=== PATIENT | female | born 1945 | race Caucasian/White ===

== ENCOUNTER → 2023-07-01 09:50 | Outpatient (REF) | payer MEDICARE, SELFPAY ==
[2023-07-01 13:40] LABS: % Basophils 1.2 % (0-2); % Immature Granulocytes 0.2 % (0-0.5); % Lymphocytes 31.4 % (20.5-51.1); % Monocytes 7.2 % (1.7-9.3); Absolute Basophils 0.1 10^3/uL (0-0.2); Absolute Eosinophils 0.1 10^3/uL (0-0.7); Absolute Lymphocytes 1.4 10^3/uL (1.2-3.4); Absolute Monocytes 0.3 10^3/uL (0.1-0.6); Absolute Neutrophils 2.5 10^3/uL (1.4-6.5); Hemoglobin 12.7 g/dL (12.0-16.0); Mean Corp Hgb Conc. 34.3 g/dL (33.0-37.0); Mean Corpuscular Hgb 32.1 pg (27.0-31.0); Mean Corpuscular Volume 93.4 fL (81.0-99.0); Mean Platelet Volume 10.6 fL (7.4-10.4); Nucleated Red Blood Cells % 0 %; Platelet Count 217 10^3/uL (130-400); Red Blood Cell Count 3.96 10^6/uL (4.20-5.40); Red Cell Dist. Width 13.1 % (11.5-14.5); White Blood Cell Count 4.3 10^3/uL (4.8-10.8)
[2023-07-01 14:08] LABS: ALT (SGPT) 13 U/L (0-35); AST (SGOT) 27 U/L (14-36); Albumin 4.3 g/dl (3.5-5.0); Alkaline Phosphatase 79 U/L (38-126); Blood Urea Nitrogen 14 mg/dl (7-17); Calcium 9.9 mg/dl (8.4-10.2); Carbon Dioxide 31 mmol/L (22-30); Chloride 101 mmol/L (98-107); Glucose 90 mg/dl (70-99); HDL Cholesterol 76 mg/dl; LDL Cholesterol, Calculated 62 mg/dl; Potassium 4.3 mmol/L (3.5-5.1); Sodium 139 mmol/L (135-145); Total Bilirubin 0.7 mg/dl (0.2-1.3); Total Cholesterol 150 mg/dl (50-199); Total Protein 6.8 g/dl (6.3-8.2); Triglyceride 64 mg/dl (10-149); Very Low Density Lipoprotein 12 mg/dl (0-30); eGFR > 60.00
[2023-07-01 14:35] LABS: Glycohemoglobin (HgbA1c) 5.9 % (4.0-5.6)
[2023-07-01 14:37] LABS: TSH 0.31 uIU/ml (0.47-4.68)
== END ==
LOC: REG 09:50
PROVIDERS: ATTENDING PHYSICIAN Family Medicine
DX: R73.01 Impaired fasting glucose (principal); I10 Essential (primary) hypertension; E78.5 Hyperlipidemia, unspecified; E03.8 Other specified hypothyroidism; E06.3 Autoimmune thyroiditis
CPT/HCPCS: 36415; 80053; 80061; 83036; 84443; 85025

== ENCOUNTER → 2023-08-11 | Outpatient (REF) | payer MEDICARE, SELFPAY | LOC: DHSLP | PROVIDERS: ATTENDING PHYSICIAN Internal Medicine Critical Care Medicine; FAMILY PHYSICIAN Family Medicine | DX: G47.33 Obstructive sleep apnea (adult) (pediatric) (principal); R09.02 Hypoxemia | CPT/HCPCS: 95800 ==

== ENCOUNTER → 2023-09-08 08:32 | Outpatient (REF) | payer MEDICARE, SELFPAY | LOC: MRI 08:32 | PROVIDERS: ATTENDING PHYSICIAN Family Medicine | DX: R29.2 Abnormal reflex (principal); R25.8 Other abnormal involuntary movements; G62.9 Polyneuropathy, unspecified | CPT/HCPCS: 72148 ==

== ENCOUNTER → 2023-11-08 10:31 | Outpatient (REF) | payer MEDICARE, SELFPAY ==
[2023-11-08 12:28] LABS: Fibrinogen 338 MG/DL (199-459)
[2023-11-10 17:09] LABS: Homocysteine 12 umol/L (0-15)
== END ==
LOC: REG 10:31
PROVIDERS: ATTENDING PHYSICIAN Family Medicine; FAMILY PHYSICIAN Family Medicine
DX: R53.82 Chronic fatigue, unspecified (principal); E03.9 Hypothyroidism, unspecified; M79.7 Fibromyalgia; E72.11 Homocystinuria
CPT/HCPCS: 36415; 83090; 85384

== ENCOUNTER → 2023-11-15 08:36 | Outpatient (REF) | payer MEDICARE, SELFPAY | LOC: WDC 08:36 | PROVIDERS: ATTENDING PHYSICIAN Obstetrics & Gynecology Gynecology; FAMILY PHYSICIAN Family Medicine | DX: Z12.31 Encounter for screening mammogram for malignant neoplasm of breast (principal) | CPT/HCPCS: 77063; 77067 ==

== ENCOUNTER 2023-11-16 16:01 | Emergency (ER) | payer MEDICARE, SELFPAY ==
[2023-11-16 16:01] VITALS: BMI 26.6
[2023-11-16 16:12] VITALS: BP 145/104
[2023-11-16 16:44] LABS: % Basophils 0.8 % (0-2); % Eosinophils 2.3 % (0-6); % Immature Granulocytes 0.2 % (0-0.5); % Lymphocytes 33.3 % (20.5-51.1); % Monocytes 7.6 % (1.7-9.3); % Neutrophils 55.8 % (42.2-75.2); Absolute Basophils 0.1 10^3/uL (0-0.2); Absolute Eosinophils 0.1 10^3/uL (0-0.7); Absolute Monocytes 0.5 10^3/uL (0.1-0.6); Absolute Neutrophils 3.4 10^3/uL (1.4-6.5); Hematocrit 39.9 % (37.0-47.0); Hemoglobin 13.5 g/dL (12.0-16.0); Mean Corp Hgb Conc. 33.8 g/dL (33.0-37.0); Mean Corpuscular Hgb 31.1 pg (27.0-31.0); Mean Corpuscular Volume 91.9 fL (81.0-99.0); Mean Platelet Volume 10.1 fL (7.4-10.4); Nucleated Red Blood Cells % 0 %; Platelet Count 242 10^3/uL (130-400); Red Blood Cell Count 4.34 10^6/uL (4.20-5.40); Red Cell Dist. Width 13.3 % (11.5-14.5); White Blood Cell Count 6.1 10^3/uL (4.8-10.8)
[2023-11-16 16:54] LABS: APTT 30.6 Sec (23.4-35.0)
[2023-11-16 16:58] LABS: ALT (SGPT) 19 U/L (0-35); AST (SGOT) 31 U/L (14-36); Albumin 4.4 g/dl (3.5-5.0); Alkaline Phosphatase 85 U/L (38-126); Blood Urea Nitrogen 16 mg/dl (7-17); Calcium 9.8 mg/dl (8.4-10.2); Carbon Dioxide 31 mmol/L (22-30); Chloride 99 mmol/L (98-107); Glucose 97 mg/dl (70-99); Potassium 5.2 mmol/L (3.5-5.1); Sodium 139 mmol/L (135-145); Total Bilirubin 0.5 mg/dl (0.2-1.3); Total Protein 6.8 g/dl (6.3-8.2); eGFR > 60.00
[2023-11-16 17:00] VITALS: BP 143/88
--- NOTE | 2023-11-16 17:22 | ED.GENMED ---
History of Present Illness
General
Chief Complaint: Dizziness
Time Seen by Provider: 11/16/23 16:38
History of Present Illness
History of Present Illness:
HPI: At 2pm, dizzy/weak, took nap, woke at 3pm and 'couldn't walk'. Normally has some ataxia to LLE (has impaired heel to michelle on exam, but she says in chronic). Earlier in day had migraine that resolved w/ Maxalt. Her main concern is that she has
been having dramatic difficulty walking since about 3 PM. At rest, on the stretcher, she does not notice anything focal but when she attempts to walk, there is marked debility.
EXAM:
GENERAL: Well appearing in no distress
HEENT: Moist oral mucosa
CARDIOVASCULAR: No murmurs, normal heart rate, regular rhythm, No chest wall tenderness
PULMONARY: No respiratory distress, breath sounds are clear and equal
ABDOMEN: Soft with no peritoneal signs, no tenderness
NEUROLOGIC: Excellent strength all extremities, no coordination deficits, ataxia noted to the left lower extremity which patient states is chronic, gait is markedly abnormal, when she took 1 step she fell into my and her 's arms
PSYCHIATRIC: Appropriate mental status, normal insight and judgement
EXTREMITIES: Nontender, no edema, moves all extremities equally
SKIN: No rash, no lesions
TIME OF INITIAL ENCOUNTER: 5 PM
NUMBER AND COMPLEXITY OF PROBLEMS ADDRESSED AT THE ENCOUNTER
� Chronic conditions affecting care: A-fib on Eliquis
� Acute Exacerbation and/or Progression of Chronic Illness: This is an acute problem
� Differential Diagnosis includes: CVA, medication related, electrolyte abnormality, thyroid related, intracranial mass
AMOUNT AND/OR COMPLEXITY OF DATA TO BE REVIEWED AND ANALYZED
� I performed an independent evaluation of and my interpretation is:
EKG: A-fib 90, normal axis, nonspecific ST abnormality
CT: CT head negative for acute abnormality
X-rays:
Laboratory Studies: CBC unremarkable, chemistries show bicarb of 31 and a potassium of 5.2 but otherwise unremarkable
Other:
� Review of other/old records: I reviewed records, the patient has echo in 2022 for paroxysmal A-fib
� Clinical information was obtained by an independent historian: I spoke to the at bedside
� Prescriptions/Medications Considered but not given:
� Further testing considered but not performed:
RISK OF COMPLICATIONS AND/OR MORBIDITY OR MORTALITY OF PATIENT MANAGEMENT
� Social determinants of health affecting care: Lives at home
� Discussion with other providers: Discussed case with neurology and discussed with hospitalist for admission
� Escalation of care including admission/observation vs risk of discharge considered: Although at rest, the patient has ataxia limited to the left lower extremity which she states is chronic, she has marked gait abnormality. She
actually collapsed when she tried to take just 1 step. She cannot safely be discharged.
Past History
Past History
ED Past Medical History: Arrthythmia (Atrial fibrillation), HTN, Hypercholesterolemia, Hypothyroidism and Other (Lyme Disease)
ED Past Surgical History: Cardiac (Pacemaker)
Social History
Tobacco: Non-smoker
Alcohol: None
Drug: None
Personal:
Living: with family
Employment: Employed
Family History
Family History: Negative Sudden
Phy Exam
Physical Exam
Physical Exam:
See HPI
Course
Orders/Labs/Results
Orders:
Orders
11/16/23 16:03
Electrocardiogram (*1) Urgent
Reason for Study: Chest Pain
EKG- Treatment ONCE
11/16/23 16:17
CT Head W/o Iv Contrast Urgent
Comment:
Reason For Exam: dizziness
11/16/23 16:24
Complete Blood Count/With Diff Urgent
Comprehensive Metabolic Panel Urgent
PTT Urgent
TSH Reflex To Free T4 Urgent
Comment: ADDON
Troponin I Urgent
11/16/23 17:24
Add On- LAB Urgent
Tests Added?: tsh reflex fT4
Abnormal Lab Results
11/16/23
16:24
MCH 31.1 H pg
(27.0-31.0)
Potassium 5.2 H mmol/L
(3.5-5.1)
Carbon Dioxide 31 H mmol/L
(22-30)
11/16/23 16:24
11/16/23 16:24
Vital Signs
Initial and Last Documented VS:
Initial Vital Signs
Temp Pulse Resp BP Pulse Ox
98.3 F 95 18 145/104 98
11/16/23 16:12 11/16/23 16:12 11/16/23 16:12 11/16/23 16:12 11/16/23 16:12
Last Documented Vital Signs
Temp Pulse Resp BP Pulse Ox
98.3 F 70 12 146/95 99
11/16/23 16:12 11/16/23 19:44 11/16/23 19:44 11/16/23 19:00 11/16/23 19:44
*Critical Care Note
Total Time (30-74mins, 75-104mins- exclusive of procedures): Not Applicable
ED Attending Note
-
Portions of this chart may have been created with voice recognition software.� Occasional wrong word or��sound alike� substitutions may have occurred due to the inherent limitations of voice recognition software.
Discharge Plan
Departure
Patient Disposition: Admit
Date of Disposition: 11/16/23
Time of Disposition: 18:27
Presentation/result/management discussed w/ accepting MD/DO: Hospitalist
Discharge Problem:
Ataxia
Prescriptions:
No Action
oxazepam 10 MG capsule
10 mg PO BID
Patient Comments:
11/16/23: last filled 08/09/23 for 120 tablets, doctor to switch her to Valium in the future.
levothyroxine 88 MCG tablet
88 mcg PO DAILY
gabapentin 300 MG capsule
300 mg PO BID
escitalopram oxalate [Lexapro] 20 MG tablet
20 mg PO BID
omeprazole magnesium [Prilosec OTC] 20 MG tablet,delayed release (DR/EC)
20 mg PO DAILY
Folbic 1 EACH tablet
1 tab PO DAILY
metoprolol succinate 50 MG tablet extended release 24 hr
50 mg PO DAILY
rizatriptan [Maxalt] 10 MG tablet
10 mg PO DAILYPRN PRN (Reason: migraines)
Systane Balance 10 ML drops
1 drp BOTH EYES BIDPRN PRN (Reason: dry eye)
Vitamin D3/Vitamin K2 (Mk4) 1 TAB Capsule
1 cap PO DAILY
Eliquis 5 MG tablet
5 mg PO BID Qty: 0 0RF
Rx Instructions:
HOLD post procedure- OK to resume on 07/10 in AM
rosuvastatin 5 mg Tablet
5 mg PO HS
ATP 25 mg Tablet,Delayed Release (Dr/Ec)
50 mg PO BID
R-lipoic acid-biotin 100 mg-150 mcg Capsule
1 cap PO DAILY
Ketamin Gel gel
1 applic topical DAILYPRN PRN (Reason: nerve pain)
Patient Comments:
11/16/23: Patient gets specially compounded topical containing ketamine and other ingredients. Last filled 10/31/23 per PDMP.
Homeopathic Iron tablet
5 tab PO BID
Referrals:
Rayshawn Weems DO [Family Provider] -
Interventions
Interventions:
*Risk Screen - Suicide Last Done: 11/16/23 16:05
*General Assessment Last Done: 11/16/23 16:12
*Neglect/Abuse Screening Last Done: 11/16/23 17:11
ED- Fall Risk Assessment Last Done: 11/16/23 17:07
*ED COVID-19 Vaccine History Last Done: 11/16/23 17:11
ED- Neurological Assessment Last Done: 11/16/23 19:33
ED- Cardiac Assessment Last Done: 11/16/23 17:07
ED Swallowing Screen Last Done: 11/16/23 19:33
Discharge Date and Time
Print Language: WALLISIAN
[2023-11-16 17:24] LABS: Troponin I < 0.012 ng/ml
[2023-11-16 18:00] VITALS: BP 137/91
[2023-11-16 19:00] VITALS: BP 146/95
[2023-11-16 19:47] LABS: TSH Reflex To Free T4 2.97 uIU/ml (0.47-4.68)
[2023-11-16 20:00] VITALS: BP 146/97
[2023-11-16 21:00] VITALS: BP 140/90
--- NOTE | 2023-11-16 21:42 | ED.ADDNOTE ---
ED Addendum
ED Addendum
ED Addendum Note:
After plan anticipation for admission to the hospital, the hospitalist was speaking to neurology, Dr. Kline and the patient reportedly had a recent MRI. The patient's ataxia has markedly improved and on reassessment she is able to take a few
steps without difficulty. The patient will be discharged and she is to continue Eliquis and she will follow-up with her own neurologist.
== END 2023-11-16 22:07 | disposition home or self-care (01) ==
LOC: EMR 16:01
PROVIDERS: Emergency Medicine; Student in an Organized Health Care Education/Training Program; EMERGENCY PHYSICIAN Emergency Medicine; FAMILY PHYSICIAN Family Medicine
DX: R27.0 Ataxia, unspecified (principal); E03.9 Hypothyroidism, unspecified; E78.00 Pure hypercholesterolemia, unspecified; I10 Essential (primary) hypertension; I48.91 Unspecified atrial fibrillation; Z79.01 Long term (current) use of anticoagulants; Z95.0 Presence of cardiac pacemaker
CPT/HCPCS: 99284; 70450; 80053; 84443; 84484; 85025; 85730; 93005

== ENCOUNTER → 2023-11-28 13:18 | Outpatient (REF) | payer MEDICARE, SELFPAY ==
[2023-11-28 14:55] LABS: Ferritin 33.9 ng/ml (11.1-264.0)
[2023-11-28 14:58] LABS: Vitamin D, 25-OH*** 74.1 ng/mL (30-80)
[2023-11-28 15:12] LABS: TSH 1.04 uIU/ml (0.47-4.68)
[2023-11-28 15:48] LABS: Folate > 20.0 ng/ml (2.76-20); Vitamin B12 > 1000 pg/ml (239-931)
[2023-12-01 03:26] LABS: Arsenic, Blood <10.0 ug/L (<=12.0); Lead - Venous <2.0 ug/dL (<=4.9); Mercury, Blood 3.4 ug/L (<=10.0)
== END ==
LOC: REG 13:18
PROVIDERS: ATTENDING PHYSICIAN Family Medicine
DX: E55.9 Vitamin D deficiency, unspecified (principal); E03.8 Other specified hypothyroidism; G62.9 Polyneuropathy, unspecified; E61.1 Iron deficiency; Z79.899 Other long term (current) drug therapy
CPT/HCPCS: 36415; 82175; 82306; 82607; 82728; 82746; 83655; 83825; 84207; 84443

== ENCOUNTER → 2023-12-01 08:24 | Outpatient (REF) | payer MEDICARE, SELFPAY | LOC: RAD 08:24 | PROVIDERS: ATTENDING PHYSICIAN Family Medicine | DX: M85.89 Other specified disorders of bone density and structure, multiple sites (principal) | CPT/HCPCS: 77080 ==

== ENCOUNTER → 2024-01-16 13:28 | Outpatient (REF) | payer MEDICARE, SELFPAY | LOC: MRI 13:28 | PROVIDERS: ATTENDING PHYSICIAN Family Medicine | DX: E27.8 Other specified disorders of adrenal gland (principal) | CPT/HCPCS: 74183; A9575 ==

== ENCOUNTER → 2024-01-23 09:03 | Outpatient (REF) | payer MEDICARE, SELFPAY ==
[2024-01-23 11:36] LABS: TSH 1.89 uIU/ml (0.47-4.68)
[2024-01-23 11:37] LABS: ALT (SGPT) 14 U/L (0-35); AST (SGOT) 23 U/L (14-36); Albumin 4.3 g/dl (3.5-5.0); Alkaline Phosphatase 81 U/L (38-126); Blood Urea Nitrogen 20 mg/dl (7-17); Calcium 9.7 mg/dl (8.4-10.2); Carbon Dioxide 33 mmol/L (22-30); Chloride 100 mmol/L (98-107); Glucose 91 mg/dl (70-99); HDL Cholesterol 78 mg/dl; LDL Cholesterol, Calculated 91 mg/dl; Potassium 4.4 mmol/L (3.5-5.1); Sodium 143 mmol/L (135-145); Total Bilirubin 0.5 mg/dl (0.2-1.3); Total Cholesterol 190 mg/dl (50-199); Total Protein 6.9 g/dl (6.3-8.2); Triglyceride 108 mg/dl (10-149); Very Low Density Lipoprotein 21 mg/dl (0-30); eGFR > 60.00
[2024-01-24 08:58] LABS: Glycohemoglobin (HgbA1c) 5.8 % (4.0-5.6)
[2024-01-25 15:19] LABS: Vitamin B6 Results 24.1 nmol/L (20.0-125.0)
== END ==
LOC: REG 09:03
PROVIDERS: ATTENDING PHYSICIAN Family Medicine
DX: E67.2 Megavitamin-B6 syndrome (principal); E06.3 Autoimmune thyroiditis; E03.8 Other specified hypothyroidism; E78.5 Hyperlipidemia, unspecified; E55.9 Vitamin D deficiency, unspecified; R73.01 Impaired fasting glucose
CPT/HCPCS: 36415; 80053; 80061; 83036; 84207; 84443

== ENCOUNTER → 2024-03-28 11:53 | Outpatient (REF) | payer MEDICARE, SELFPAY ==
[2024-03-28 13:23] LABS: ALT (SGPT) 14 U/L (0-35); AST (SGOT) 26 U/L (14-36); Albumin 4.4 g/dl (3.5-5.0); Alkaline Phosphatase 93 U/L (38-126); Blood Urea Nitrogen 15 mg/dl (7-17); Calcium 9.7 mg/dl (8.4-10.2); Carbon Dioxide 32 mmol/L (22-30); Chloride 99 mmol/L (98-107); Glucose 94 mg/dl (70-99); HDL Cholesterol 76 mg/dl; LDL Cholesterol, Calculated 78 mg/dl; Potassium 4.6 mmol/L (3.5-5.1); Sodium 138 mmol/L (135-145); Total Bilirubin 0.9 mg/dl (0.2-1.3); Total Cholesterol 174 mg/dl (50-199); Total Protein 6.6 g/dl (6.3-8.2); Triglyceride 102 mg/dl (10-149); Very Low Density Lipoprotein 20 mg/dl (0-30); eGFR > 60.00
[2024-03-28 13:46] LABS: TSH 1.25 uIU/ml (0.47-4.68)
[2024-03-28 13:55] LABS: Glycohemoglobin (HgbA1c) 5.7 % (4.0-5.6)
== END ==
LOC: REG 11:53
PROVIDERS: ATTENDING PHYSICIAN Family Medicine; OTHER PHYSICIAN Family Medicine
DX: E67.2 Megavitamin-B6 syndrome (principal); E06.3 Autoimmune thyroiditis; E03.8 Other specified hypothyroidism; E78.5 Hyperlipidemia, unspecified; E55.9 Vitamin D deficiency, unspecified; R73.01 Impaired fasting glucose
CPT/HCPCS: 36415; 80053; 80061; 83036; 84207; 84443

== ENCOUNTER → 2024-06-11 11:56 | Outpatient (REF) | payer MEDICARE, SELFPAY | LOC: DHSLP 11:56 | PROVIDERS: ATTENDING PHYSICIAN Internal Medicine Critical Care Medicine; FAMILY PHYSICIAN Family Medicine | DX: G47.33 Obstructive sleep apnea (adult) (pediatric) (principal); R06.83 Snoring; M79.7 Fibromyalgia; G47.00 Insomnia, unspecified; R09.02 Hypoxemia; J45.909 Unspecified asthma, uncomplicated | CPT/HCPCS: 95800 ==

== ENCOUNTER → 2024-06-25 14:18 | Outpatient (REF) | payer MEDICARE, SELFPAY ==
[2024-06-25 15:23] LABS: Blood Urea Nitrogen 21 mg/dl (7-17); Calcium 9.6 mg/dl (8.4-10.2); Carbon Dioxide 30 mmol/L (22-30); Chloride 102 mmol/L (98-107); Glucose 100 mg/dl (70-99); Sodium 140 mmol/L (135-145); eGFR > 60.00
[2024-06-25 15:30] LABS: NT-proBNP 517 pg/ml
[2024-06-25 15:46] LABS: D-Dimer 1.26 ug/mlFEU (0.00-0.50)
== END ==
LOC: REG 14:18
PROVIDERS: ATTENDING PHYSICIAN Family Medicine; FAMILY PHYSICIAN Family Medicine
DX: R60.0 Localized edema (principal)
CPT/HCPCS: 36415; 80048; 83880; 85379

== ENCOUNTER → 2024-06-27 14:30 | Outpatient (REF) | payer MEDICARE, SELFPAY | LOC: RAD 14:30 | PROVIDERS: ATTENDING PHYSICIAN Family Medicine; FAMILY PHYSICIAN Family Medicine | DX: R79.89 Other specified abnormal findings of blood chemistry (principal); R60.0 Localized edema | CPT/HCPCS: 93970 ==

== ENCOUNTER → 2024-07-25 10:36 | Outpatient (REF) | payer MEDICARE, SELFPAY ==
[2024-07-25 11:30] LABS: Glycohemoglobin (HgbA1c) 5.8 % (4.0-5.6)
[2024-07-25 11:54] LABS: ALT (SGPT) 16 U/L (0-35); AST (SGOT) 23 U/L (14-36); Albumin 4.5 g/dl (3.5-5.0); Alkaline Phosphatase 79 U/L (38-126); Blood Urea Nitrogen 27 mg/dl (7-17); Calcium 9.4 mg/dl (8.4-10.2); Carbon Dioxide 28 mmol/L (22-30); Chloride 105 mmol/L (98-107); Glucose 99 mg/dl (70-99); HDL Cholesterol 80 mg/dl; LDL Cholesterol, Calculated 73 mg/dl; Potassium 4.4 mmol/L (3.5-5.1); Sodium 141 mmol/L (135-145); Total Bilirubin 0.8 mg/dl (0.2-1.3); Total Cholesterol 165 mg/dl (50-199); Total Protein 6.9 g/dl (6.3-8.2); Triglyceride 62 mg/dl (10-149); Very Low Density Lipoprotein 12 mg/dl (0-30); eGFR > 60.00
[2024-07-25 12:13] LABS: TSH 0.76 uIU/ml (0.47-4.68)
== END ==
LOC: REG 10:36
PROVIDERS: ATTENDING PHYSICIAN Family Medicine
DX: R73.03 Prediabetes (principal); E03.9 Hypothyroidism, unspecified; E78.5 Hyperlipidemia, unspecified
CPT/HCPCS: 36415; 80053; 80061; 83036; 84443

== ENCOUNTER → 2024-08-17 13:58 | Outpatient (REF) | payer MEDICARE, SELFPAY | LOC: EMG 13:58 | PROVIDERS: ATTENDING PHYSICIAN Family Medicine | DX: G62.9 Polyneuropathy, unspecified (principal); R20.0 Anesthesia of skin; R20.2 Paresthesia of skin | CPT/HCPCS: 95886; 95911 ==

== ENCOUNTER → 2024-08-23 12:53 | Outpatient (REF) | payer MEDICARE, SELFPAY | LOC: RCS 12:53 | PROVIDERS: ATTENDING PHYSICIAN Internal Medicine Cardiovascular Disease; FAMILY PHYSICIAN Family Medicine | DX: I48.0 Paroxysmal atrial fibrillation (principal) | CPT/HCPCS: 93306 ==

== ENCOUNTER → 2024-11-19 08:31 | Outpatient (REF) | payer MEDICARE, SELFPAY | LOC: WDC 08:31 | PROVIDERS: ATTENDING PHYSICIAN Obstetrics & Gynecology Gynecology; FAMILY PHYSICIAN Family Medicine | DX: Z12.31 Encounter for screening mammogram for malignant neoplasm of breast (principal); Z12.39 Encounter for other screening for malignant neoplasm of breast | CPT/HCPCS: 77063; 77067 ==

== ENCOUNTER → 2024-12-25 10:56 | Outpatient (REF) | payer MEDICARE, SELFPAY ==
[2024-12-25 11:25] LABS: Hematocrit 37.2 % (37.0-47.0); Hemoglobin 12.4 g/dL (12.0-16.0); Mean Corp Hgb Conc. 33.3 g/dL (33.0-37.0); Mean Corpuscular Volume 94.9 fL (81.0-99.0); Nucleated Red Blood Cells % 0 %; Platelet Count 174 10^3/uL (130-400); Red Cell Dist. Width 13.5 % (11.5-14.5)
[2024-12-25 11:52] LABS: ALT (SGPT) 14 U/L (0-35); AST (SGOT) 24 U/L (14-36); Albumin 4.3 g/dl (3.5-5.0); Alkaline Phosphatase 56 U/L (38-126); Blood Urea Nitrogen 16 mg/dl (7-17); Calcium 9.5 mg/dl (8.4-10.2); Carbon Dioxide 34 mmol/L (22-30); Chloride 100 mmol/L (98-107); Glucose 97 mg/dl (70-99); HDL Cholesterol 79 mg/dl; LDL Cholesterol, Calculated 80 mg/dl; Potassium 4.4 mmol/L (3.5-5.1); Sodium 137 mmol/L (135-145); Total Protein 6.9 g/dl (6.3-8.2); Very Low Density Lipoprotein 16 mg/dl (0-30); eGFR > 60.00
[2024-12-25 12:03] LABS: Glycohemoglobin (HgbA1c) 5.9 % (4.0-5.9)
[2024-12-25 12:19] LABS: TSH 0.87 uIU/ml (0.47-4.68)
== END ==
LOC: REG 10:56
PROVIDERS: ATTENDING PHYSICIAN Family Medicine
DX: E67.2 Megavitamin-B6 syndrome (principal); G62.9 Polyneuropathy, unspecified; E03.8 Other specified hypothyroidism; E78.5 Hyperlipidemia, unspecified; R73.01 Impaired fasting glucose
CPT/HCPCS: 36415; 80053; 80061; 83036; 84207; 84443; 85025